=== PATIENT | male | born 1950 | race Caucasian/White ===

== ENCOUNTER 2017-10-28 07:46 | Day surgery (SDC) | payer MEDICARE ==
[2017-10-27 09:30] VITALS: BP 147/68
[~2017-10-28] VITALS: Ht 188 cm; Wt 90.6 kg
[~2017-10-28 07:46] MED LIST: AMIT10TA PO; ASPI-496 PO; ATOR20TA9 PO; BACITRACIN OINT 500U/GM, 15 GM ONE; CHOL500015 PO; EPINEPHRINE TOPICAL SOLN 1 MG/ML, 30ML ONE; FLUORESCEIN OPHTHALMIC 1 MG STRIP ONE; GLUC1TAB21 PO; LEVO50TA5 PO; LIDOCAINE/PF 1%-EPI 1:200K, 30 ML ONE; LISI-167 PO; METH2.5T PO; MULT-257 PO; OMEP20TA62 PO; OXYMETAZOLINE NASAL SPRAY 0.05%, 15ML ONE; PRAS50CA PO; SOTA80TA PO; TRIA10.8 IH; [UNRECOGNIZED DRUG - CODE] PO
[2017-10-28] MEDS ORDERED: LACTATED RINGERS 1,000 ML IV SCH (08:22)
[2017-10-28 08:24] VITALS: BP 147/68
[2017-10-28] MEDS ORDERED: LIDOCAINE 1%, 2ML ONE (08:24)
[2017-10-28] MEDS ORDERED: LIDOCAINE 1%, 2ML SQ PRN (08:30)
[2017-10-28 09:01] LABS: ALANINE AMINOTRANSFERASE 26 U/L (12-78); ALBUMIN 3.4 g/dL (3.4-5.0); ANION GAP 7 mmol/L (5-15); CALCIUM 8.8 mg/dL (8.5-10.1); CHLORIDE 111 mmol/L (98-107); CREATININE 1.27 mg/dL (0.7-1.3)
[2017-10-28 09:03] LABS: ALKALINE PHOSPHATASE 79 U/L (45-117); BILIRUBIN,TOTAL 0.6 mg/dL (0.2-1.0)
[2017-10-28] MEDS ORDERED: FENTANYL PF 100 MCG/2ML ONE ×2 (09:49)
[2017-10-28] MEDS ORDERED: MIDAZOLAM 1 MG/ML, 2ML ONE (09:50)
[2017-10-28] MEDS ORDERED: DEXAMETHASONE 4 MG/ML, 1ML ONE ×2 (10:26→11:01)
[2017-10-28] MEDS ORDERED: OXYcodone 5 MG/5 ML ORAL.SOL UDC PO PRN (11:00)
[2017-10-28] MEDS ORDERED: ACETAMINOPHEN 325 MG TABLET PO PRN (11:00)
[2017-10-28] MEDS ORDERED: FENTANYL PF 100 MCG/2ML IV PRN (11:00)
[2017-10-28] MEDS ORDERED: HYDROcodone/APAP 7.5-325MG/15ML UDC PO PRN (11:00)
[2017-10-28] MEDS ORDERED: LABETALOL 5MG/ML, 20ML IV PRN (11:00)
[2017-10-28] MEDS ORDERED: ONDANSETRON 2MG/ML, 2ML IVPush PRN (11:00)
[2017-10-28] MEDS ORDERED: DIAZEPAM 5 MG/ML, 2ML IVPush PRN (11:00)
[2017-10-28] MEDS ORDERED: MIDAZOLAM 1 MG/ML, 2ML IV PRN (11:00)
[2017-10-28] MEDS ORDERED: ALBUTEROL SULFATE 2.5 MG/3 ML NPPB PRN (11:00)
[2017-10-28] MEDS ORDERED: EPHEDRINE 50 MG/ML, 1ML IVPush PRN (11:00)
[2017-10-28] MEDS ORDERED: HYDROmorphone 1 MG/ML, 1ML IV PRN (11:00)
[2017-10-28] MEDS ORDERED: METOPROLOL 1 MG/ML, 5ML IV PRN (11:00)
[2017-10-28] MEDS ORDERED: PROMETHAZINE 12.5 MG SUPP PR PRN (11:00)
[2017-10-28] MEDS ORDERED: hydrALAzine 20 MG/ML, 1ML IV PRN (11:00)
[2017-10-28] MEDS ORDERED: CEFAZOLIN 1,000 MG ONE (11:01)
[2017-10-28] MEDS ORDERED: GLYCOPYRROLATE 0.2MG/1ML, 5ML ONE (11:01)
[2017-10-28] MEDS ORDERED: SUCCINYLCHOLINE 20 MG/ML, 10ML ONE (11:01)
[2017-10-28] MEDS ORDERED: PROPOFOL 10 MG/ML, 20ML ONE (11:01)
[2017-10-28] MEDS ORDERED: ONDANSETRON 2MG/ML, 2ML ONE (11:01)
[2017-10-28] MEDS ORDERED: ROCURONIUM 10 MG/ML,10ML ONE (11:01)
[2017-10-28] MEDS ORDERED: NEOSTIGMINE 1 MG/ML, 10ML ONE (11:01)
== END 2017-10-28 14:25 ==
LOC: OUT 07:46
PROVIDERS: ATTEND Otolaryngology
DX: J32.0 Chronic maxillary sinusitis (principal); K14.8 Other diseases of tongue; E78.00 Pure hypercholesterolemia, unspecified; K21.9 Gastro-esophageal reflux disease without esophagitis; E03.9 Hypothyroidism, unspecified; I10 Essential (primary) hypertension; Z98.890 Other specified postprocedural states; Z98.42 Cataract extraction status, left eye; Z98.41 Cataract extraction status, right eye; Z95.0 Presence of cardiac pacemaker
CPT/HCPCS: 31254; 31267; 36415; 80053; 87070; 87075; 87077; 87102; 87176; 87186; 87205; 88304; 88305; 88333; 93005; J0330; J0690; J1100; J2250; J2405; J2704; J2710; J3010; J3490; J7120; 88311; 88341; 88342; G0461